=== PATIENT | male | born 1980 | race African-American/Black ===

== ENCOUNTER 2020-08-24 11:38 | Emergency (ER) | payer BC ==
[~2020-08-24] VITALS: Ht 182.9 cm; Wt 79.4 kg
[2020-08-24 11:56] VITALS: BP_SYST 155
[2020-08-24 12:44] LABS: BILIRUBIN,URINE NEGATIVE (NEGATIVE); BLOOD, URINE NEGATIVE (NEGATIVE); CLARITY/URINE CLEAR (CLEAR); COLOR,URINE YELLOW (YELLOW); GLUCOSE,URINE NEGATIVE (NEGATIVE); KETONES,URINE NEGATIVE (NEGATIVE); LEUKOCYTE ESTERASE ,URINE NEGATIVE (NEGATIVE); NITRITE, URINE NEGATIVE (NEGATIVE); PROTEIN URINE NEGATIVE (NEGATIVE); UROBILINOGEN,URINE 0.2 (0.2-1.0)
[2020-08-24] MEDS ORDERED: ACYC400T19 PO (13:09)
[2020-08-24 13:55] VITALS: BP_SYST 141
== END 2020-08-24 13:55 | disposition home or self-care (01) ==
LOC: SED 11:38
DX: B00.9 Herpesviral infection, unspecified (principal)
CPT/HCPCS: 81003; 99283